=== PATIENT | female | born 1965 | race Caucasian/White ===

== ENCOUNTER 2016-04-15 18:36 | Emergency (ER) | payer OTHER ==
[~2016-04-15] VITALS: Ht 165.1 cm; Wt 57.8 kg
[2016-04-15 18:41] VITALS: BP 116/71; PULSE 80; RESP 16; TEMP 98.4; O2SAT 100
[2016-04-15] MEDS ORDERED: KETOROLAC TROMETHAMINE 60 MG/2 ML (IM) VIAL IM ONE (19:00)
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
--- NOTE | 2016-04-15 19:26 | RADRPT ---
EXAM DATE/TIME: 04/15/2016 19:19 [facility] COMPARISON: CHEST SINGLE AP, July 30, 2014, 8:30. INDICATIONS : Chest pain. MEDICAL HISTORY : None. SURGICAL HISTORY : None. ENCOUNTER: Initial ACUITY: 1 day PAIN SCORE: 2/10 LOCATION: Bilateral chest FINDINGS: PA and lateral views of the chest demonstrate the lungs to be symmetrically aerated without evidence of mass, infiltrate or effusion. The cardiomediastinal contours are unremarkable. Osseous structure s are intact. CONCLUSION: No acute disease. Imer Olivia MD on April 15, 2016 at 19:24 Board Certified Radiologist. This report was verified electronically.
[2016-04-15 19:30] VITALS: BP 125/72; PULSE 84; RESP 20; O2SAT 99
[2016-04-15] MEDS ORDERED: NORC5TAB PO ×2 (19:59→20:47)
[2016-04-15] MEDS ORDERED: ACETAMINOPHEN/HYDROcodone 325 MG/5 MG TAB PO ONE (20:00)
[2016-04-16] MEDS ORDERED: ZOFR4TAB3 SL (19:12)
[2016-04-16] MEDS ORDERED: ROBA750T PO (19:12)
== END 2016-04-15 21:03 | disposition home or self-care (01) ==
LOC: NEPA 18:36
DX: S82.64XA Nondisplaced fracture of lateral malleolus of right fibula, initial encounter for closed fracture (principal); Z72.0 Tobacco use; R07.9 Chest pain, unspecified; V49.9XXA Car occupant (driver) (passenger) injured in unspecified traffic accident, initial encounter
CPT/HCPCS: 71020; 73610; 84703; 96372; 99284; E0113; J1885; L2114

== ENCOUNTER 2016-04-16 13:59 | Emergency (ER) | payer OTHER ==
[~2016-04-16] VITALS: Ht 165.1 cm; Wt 52.0 kg
[~2016-04-16 13:59] MED LIST: NORC5TAB PO
[2016-04-16 14:01] VITALS: BP 113/69; PULSE 102; RESP 14; TEMP 98.2; O2SAT 96
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
[2016-04-16] MEDS ORDERED: SODIUM CHLORIDE 0.9% FLUSH 5 ML FLUSH IVF PRN (16:30)
[2016-04-16] MEDS ORDERED: SODIUM CHLOR 0.9% 1000 ML INJ 1,000 ML IV ONE (16:30)
[2016-04-16] MEDS ORDERED: ONDANSETRON HCL 4 MG/2 ML VIAL IV PUSH ONE (16:30)
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
[2016-04-16 17:16] LABS: AUTOMATED NEUTROPHIL # 8.2 TH/MM3 (1.8-7.7); BASOPHIL % 0.4 % (0.0-2.0); EOSINOPHIL % 0.4 % (0.0-4.0); HEMATOCRIT 37.7 % (35.0-46.0); HEMO FLAGS DIFF FINAL; LYMPH % 18.7 % (9.0-44.0); LYMPHOCYTE # 2.1 TH/MM3 (1.0-4.8); MEAN CELL VOLUME 88.4 FL (80.0-100.0); MEAN CORPUSCULAR HEMOGLOBIN 29.8 PG (27.0-34.0); MEAN CORPUSCULAR HGB CONC 33.7 % (32.0-36.0); MONO % 8.7 % (0.0-8.0); NEUT % 71.8 % (16.0-70.0); PLATELET COUNT 211 TH/MM3 (150-450); RED BLOOD COUNT 4.26 MIL/MM3 (4.00-5.30); RED CELL DISTRIBUTION WIDTH 13.1 % (11.6-17.2); WHITE BLOOD COUNT 11.4 TH/MM3 (4.0-11.0)
[2016-04-16 17:24] LABS: APTT (PATIENT) 24.4 SEC (24.3-30.1); PROTHROMBIN TIME - PATIENT 10.6 SEC (9.8-11.6)
[2016-04-16 17:34] VITALS: O2SAT 100
[2016-04-16 17:44] LABS: ANION GAP 8 MEQ/L (5-15); AST (GOT) 12 U/L (15-37); BICARBONATE 27.8 MEQ/L (21.0-32.0); BLOOD UREA NITROGEN 11 MG/DL (7-18); CHLORIDE 105 MEQ/L (98-107); GLOMERULAR FILTRATION RATE 86 ML/MIN (>89); POTASSIUM 3.8 MEQ/L (3.5-5.1); SODIUM (NA) 141 MEQ/L (136-145)
[2016-04-16 17:49] LABS: ALKALINE PHOSPHATASE 68 U/L (45-117); ALT (GPT) 20 U/L (10-53); TOTAL BILIRUBIN ADULT 1.5 MG/DL (0.2-1.0)
[2016-04-16] MEDS ORDERED: IOHEXOL 350 MG/ML 10 ML VIAL (for RAD DIAG) IV ONE (18:17)
[2016-04-16 18:39] VITALS: BP 103/72; PULSE 74; RESP 20; O2SAT 100
[2016-04-16 18:40] VITALS: BP 103/72; PULSE 74; RESP 20; O2SAT 100
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
[2016-04-16] MEDS ORDERED: ROBA750T PO (19:12)
[2016-04-16] MEDS ORDERED: ZOFR4TAB3 SL (19:12)
== END 2016-04-16 19:43 | disposition home or self-care (01) ==
LOC: NEPC 13:59
DX: M94.0 Chondrocostal junction syndrome [Tietze] (principal); S16.1XXA Strain of muscle, fascia and tendon at neck level, initial encounter; S80.02XA Contusion of left knee, initial encounter; R51 Headache; S82.64XA Nondisplaced fracture of lateral malleolus of right fibula, initial encounter for closed fracture; Z72.0 Tobacco use; V44.5XXD Car driver injured in collision with heavy transport vehicle or bus in traffic accident, subsequent encounter
CPT/HCPCS: 70450; 71020; 71260; 72125; 73564; 80053; 83690; 84484; 85025; 85610; 85730; 96361; 96374; 99284; J2405; J7030; Q9967

== ENCOUNTER 2016-12-10 05:17 | Emergency (ER) | payer BC, OTHER ==
[~2016-12-10] VITALS: Ht 167.6 cm; Wt 53.8 kg
[~2016-12-10 05:17] MED LIST changes: +ROBA750T PO; +ZOFR4TAB3 SL
[2016-12-10 05:24] VITALS: BP 107/68; PULSE 68; RESP 16; TEMP 97.5; O2SAT 100
[2016-12-10] MEDS ORDERED: GAS-CAP3 PO (05:38)
[2016-12-10] MEDS ORDERED: ADVI200C3 (05:38)
[2016-12-10] MEDS ORDERED: TOVI8TAB PO (05:38)
--- NOTE | 2016-12-10 05:52 | PD ---
HPI Chief Complaint: GI Complaint Time Seen by Provider: 05:36 Travel History International Travel<30 days: No Contact w/Intl Traveler<30days: No Traveled to known affect area: No History of Present Illness HPI The patient is a 51-year-old female that for over 2 months has had burning on urination, lower abdominal pain and rectal pain. She is seen her primary care physician and about this and has seen a urologist recently who put her on Toviaz but this is not working anymore. The dysuria is not relieved by Pyridium or Azo. She has slight nausea but no vomiting. She has not had any black or bloody stools but does have alternating constipation and diarrhea. She says she gets frequent urinary tract infections. She denies any fever. 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 PFSH Past Medical History Tubal Ligation: Yes Social History Alcohol Use: Yes (SOCIAL) Tobacco Use: Yes (e-cig) Substance Use: No Allergies-Medications (Allergen,Severity, Reaction): Coded Allergies: Sulfa (Sulfonamide Antibiotics) (Unverified Allergy, Severe, 12/10/16) Reported Meds & Prescriptions Reported Meds & Active Scripts Active Macrobid (Nitrofurantoin Monoh/Nitrofur Macro) 100 Mg Cap 100 Mg PO BID 7 Days Reported Gas-X Ultra Strength (Simethicone) 180 Mg Cap 180 Mg PO TID PRN Advil Migraine (Ibuprofen) 200 Mg Cap Toviaz ER (Fesoterodine Fumarate) 8 Mg Gómez 8 Mg PO DAILY Review of Systems Except as stated in HPI: all other systems reviewed are Neg Physical Exam Narrative GENERAL: The patient is alert, oriented 3 in slight apparent distress with her suprapubic discomfort. Her vital signs are normal. SKIN: Focused skin assessment warm/dry. No skin rash is seen. HEAD: Atraumatic. Normocephalic. EYES: Pupils equal and round. No scleral icterus. No injection or drainage. ENT: No nasal bleeding or discharge. Mucous membranes pink and moist. NECK: Trachea midline. No JVD. CARDIOVASCULAR: Regular rate and rhythm. No murmur appreciated. RESPIRATORY: No accessory muscle use. Clear to auscultation. Breath sounds equal bilaterally. GASTROINTESTINAL: Abdomen soft, with slight discomfort to direct palpation in the midline suprapubic area, nondistended. Hepatic and splenic margins not palpable. MUSCULOSKELETAL: No obvious deformities. No clubbing. No cyanosis. No edema. NEUROLOGICAL: Awake and alert. No obvious cranial nerve deficits. Motor grossly within normal limits. Normal speech. PSYCHIATRIC: Appropriate mood and affect; insight and judgment normal. RECTAL EXAM: No masses or tenderness, the rectum was empty of stool but a small amount of brown stool was obtained which was guaiac negative. No hemorrhoids were noted. The rectum showed no abscesses or masses. Data Data Last Documented VS Orders Orders Complete Blood Count With Diff (12/10/16 06:05) Comprehensive Metabolic Panel (12/10/16 06:05) Lipase (12/10/16 06:05) Urinalysis - C+S If Indicated (12/10/16 06:05) Ct Abd/Pel W Iv Contrast(Rout) (12/10/16 06:05) Iv Access Insert/Monitor (12/10/16 06:05) Ecg Monitoring (12/10/16 06:05) Oximetry (12/10/16 06:05) Ondansetron Inj (Zofran Inj) (12/10/16 06:15) Sodium Chlor 0.9% 1000 Ml Inj (Ns 1000 M (12/10/16 06:05) Sodium Chloride 0.9% Flush (Ns Flush) (12/10/16 06:15) Beta Hcg (Quant/Titer) (12/10/16 06:05) Urine Culture (12/10/16 06:19) Ketorolac Inj (Toradol Inj) (12/10/16 07:00) Iohexol 350 Inj (Omnipaque 350 Inj) (12/10/16 07:08) Labs Laboratory Tests Test 12/10/16 06:19 White Blood Count 14.2 TH/MM3 Red Blood Count 4.30 MIL/MM3 Hemoglobin 12.6 GM/DL Hematocrit 37.5 % Mean Corpuscular Volume 87.2 FL Mean Corpuscular Hemoglobin 29.4 PG Mean Corpuscular Hemoglobin Concent 33.7 % Red Cell Distribution Width 12.2 % Platelet Count 221 TH/MM3 Mean Platelet Volume 9.7 FL Neutrophils (%) (Auto) 78.2 % Lymphocytes (%) (Auto) 13.2 % Monocytes (%) (Auto) 4.6 % Eosinophils (%) (Auto) 0.8 % Basophils (%) (Auto) 3.2 % Neutrophils # (Auto) 11.0 TH/MM3 Lymphocytes # (Auto) 1.9 TH/MM3 Monocytes # (Auto) 0.7 TH/MM3 Eosinophils # (Auto) 0.1 TH/MM3 Basophils # (Auto) 0.5 TH/MM3 CBC Comment DIFF FINAL Differential Comment Urine Color YELLOW Urine Turbidity MOD Urine pH 6.0 Urine Specific [place] 1.029 Urine Protein TRACE mg/dL Urine Glucose (UA) NEG mg/dL Urine Ketones NEG mg/dL Urine Occult Blood LARGE Urine Nitrite NEG Urine Bilirubin NEG Urine Leukocyte Esterase MOD Urine RBC 100-200 /hpf Urine WBC INNUM /hpf Urine Squamous Epithelial Cells 0-5 /hpf Urine Bacteria FEW /hpf Urine Mucus MOD /lpf Microscopic Urinalysis Comment CULTURE INDICATED Blood Urea Nitrogen 26 MG/DL Creatinine 1.10 MG/DL Random Glucose 88 MG/DL Total Protein 7.7 GM/DL Albumin 4.1 GM/DL Calcium Level 8.8 MG/DL Alkaline Phosphatase 59 U/L Aspartate Amino Transf (AST/SGOT) 14 U/L Alanine Aminotransferase (ALT/SGPT) 18 U/L Total Bilirubin 0.5 MG/DL Sodium Level 137 MEQ/L Potassium Level 3.8 MEQ/L Chloride Level 103 MEQ/L Carbon Dioxide Level 26.9 MEQ/L Anion Gap 7 MEQ/L Estimat Glomerular Filtration Rate 53 ML/MIN Lipase 151 U/L Human Chorionic Gonadotropin, Quant 1 MIU/ML MDM Medical Decision Making Medical Screen Exam Complete: Yes Emergency Medical Condition: Yes Medical Record Reviewed: Yes Differential Diagnosis Irritable bowel syndrome, chronic abdominal pain etiology undetermined, interstitial cystitis, cystitis, anemia, electrolyte disorder, renal insufficiency Narrative Course It is now 0700 and the patient is transferred to Dr. Dozier. Procedures EKG Prior to Arrival: No Diagnosis Primary Impression: Cystitis Additional Instructions: Increase liquids, it is important to establish a good urinary flow across her kidneys to fight the infection. Scripts Nitrofurantoin Monohydrate Macrocrystals (Macrobid) 100 Mg Cap 100 MG PO BID for Infection for 7 Days, CAP 0 Refills Prov: Emily Tristan MD 12/10/16 Disposition: 01 DISCHARGE HOME Condition: Stable Sukumar Gonzales MD Dec 10, 2016 05:52
[2016-12-10] MEDS ORDERED: SODIUM CHLOR 0.9% 1000 ML INJ 1,000 ML IV SCH (06:05)
[2016-12-10] MEDS ORDERED: SODIUM CHLORIDE 0.9% FLUSH 10 ML FLUSH IV FLUSH PRN (06:15)
[2016-12-10] MEDS ORDERED: ONDANSETRON HCL 4 MG/2 ML VIAL IVP ONE (06:15)
[2016-12-10] MEDS ORDERED: AUGM875T3 PO (06:21)
[2016-12-10 06:27] LABS: BASOPHIL # 0.5 TH/MM3 (0-0.2); BASOPHIL % 3.2 % (0.0-2.0); EOSINOPHIL # 0.1 TH/MM3 (0-0.4); EOSINOPHIL % 0.8 % (0.0-4.0); HEMATOCRIT 37.5 % (35.0-46.0); HEMO FLAGS DIFF FINAL; LYMPH % 13.2 % (9.0-44.0); LYMPHOCYTE # 1.9 TH/MM3 (1.0-4.8); MEAN CELL VOLUME 87.2 FL (80.0-100.0); MEAN CORPUSCULAR HEMOGLOBIN 29.4 PG (27.0-34.0); MEAN CORPUSCULAR HGB CONC 33.7 % (32.0-36.0); MONO % 4.6 % (0.0-8.0); NEUT % 78.2 % (16.0-70.0); PLATELET COUNT 221 TH/MM3 (150-450); RED CELL DISTRIBUTION WIDTH 12.2 % (11.6-17.2); WHITE BLOOD COUNT 14.2 TH/MM3 (4.0-11.0)
[2016-12-10 06:30] LABS: BLOOD, URINE LARGE (NEG); GLUCOSE,URINE NEG (NEG); KETONE, URINE NEG (NEG); NITRITE,URINE NEG (NEG)
[2016-12-10 06:35] LABS: CHLORIDE 103 MEQ/L (98-107); POTASSIUM 3.8 MEQ/L (3.5-5.1); SODIUM (NA) 137 MEQ/L (136-145)
[2016-12-10 06:38] LABS: MUCUS URINE MOD /lpf (OCC); URINE COLOR YELLOW (YELLW/STRAW)
[2016-12-10 06:39] LABS: ANION GAP 7 MEQ/L (5-15); BACTERIA, URINE FEW /hpf; BICARBONATE 26.9 MEQ/L (21.0-32.0); BLOOD UREA NITROGEN 26 MG/DL (7-18); COMMENT (UR) CULTURE INDICATED; CULTURE IF INDICATED CULTURE INDICATED; RBC, URINE 100-200 /hpf (0-3); SQUAMOUS EPITHELIAL CELL URINE 0-5 /hpf (0-5); WBC, URINE INNUM /hpf (0-5)
[2016-12-10 06:42] LABS: ALT (GPT) 18 U/L (10-53); AST (GOT) 14 U/L (15-37); GLOMERULAR FILTRATION RATE 53 ML/MIN (>89)
[2016-12-10 06:43] LABS: TOTAL BILIRUBIN ADULT 0.5 MG/DL (0.2-1.0)
[2016-12-10 06:44] LABS: ALKALINE PHOSPHATASE 59 U/L (45-117)
[2016-12-10 06:47] LABS: BETA HCG QUANT 1 MIU/ML (0-5)
[2016-12-10 06:58] VITALS: BP 102/65; PULSE 60; RESP 16; O2SAT 100
[2016-12-10 06:59] VITALS: RESP 16; O2SAT 100
[2016-12-10] MEDS ORDERED: KETOROLAC TROMETHAMINE 60 MG/2 ML (IM) VIAL IVP ONE (07:00)
[2016-12-10] MEDS ORDERED: IOHEXOL 350 MG/ML 10 ML VIAL (for RAD DIAG) IVCONTRAST ONE (07:08)
--- NOTE | 2016-12-10 07:22 | RADRPT ---
EXAM DATE/TIME: 12/10/2016 07:04 [facility] COMPARISON: No previous studies available for comparison. INDICATIONS : Lower abdominal pain, rectal pain and burning with urination x 2 months. IV CONTRAST: 85 cc Omnipaque 350 (iohexol) IV ORAL CONTRAST: No oral contrast ingested. RADIATION DOSE: 4.53 CTDIvol (mGy) MEDICAL HISTORY : None SURGICAL HISTORY : Tubal ligation. ENCOUNTER: Initial ACUITY: 2 months PAIN SCALE: 5/10 LOCATION: Bilateral lower quadrant TECHNIQUE: Volumetric scanning of the abdomen and pelvis was performed. Using automated exposure control and ad justment of the mA and/or kV according to patient size, radiation dose was kept as low as reasonably achievable to obtain optimal diagnostic quality images. DICOM format image data is available electro nically for review and comparison. FINDINGS: Lung bases are clear. Osseous structures are intact. No pleural or pericardial effusions. Liver, gall bladder, kidneys, spleen, pancreas, adrenal glands, stomach, urinary bladder, small bowel and large b owel are unremarkable. No evidence of bowel obstruction. The appendix is normal. The ovaries are unre markable. 1.4 cm right ovarian cyst. No free fluid. There is a 1.6 cm nabothian cyst. Retroaortic lef t renal vein. CONCLUSION: No acute disease. iMke Metcalf MD on December 10, 2016 at 7:17 Board Certified Radiologist. This report was verified electronically.
[2016-12-10] MEDS ORDERED: MACR100C2 PO (07:32)
--- NOTE | 2016-12-10 07:33 | PD ---
Physical Exam Date Seen by Provider: Dec 10, 2016 Time Seen by Provider: 07:00 Narrative Patient signed out to me at [address] Gonzales, please see previous notes for further details. Awaiting workup for abdominal pain. Laboratory Tests Test 12/10/16 06:19 White Blood Count 14.2 TH/MM3 (4.0-11.0) Neutrophils (%) (Auto) 78.2 % (16.0-70.0) Basophils (%) (Auto) 3.2 % (0.0-2.0) Neutrophils # (Auto) 11.0 TH/MM3 (1.8-7.7) Basophils # (Auto) 0.5 TH/MM3 (0-0.2) Urine Turbidity MOD (CLEAR) Urine Occult Blood LARGE (NEG) Urine Leukocyte Esterase MOD (NEG) Urine RBC 100-200 /hpf (0-3) Urine WBC INNUM /hpf (0-5) Urine Bacteria FEW /hpf (NONE) Urine Mucus MOD /lpf (OCC) Blood Urea Nitrogen 26 MG/DL (7-18) Creatinine 1.10 MG/DL (0.50-1.00) Aspartate Amino Transf (AST/SGOT) 14 U/L (15-37) Estimat Glomerular Filtration Rate 53 ML/MIN (>89) Last 24 hours Impressions Abdomen/Pelvis CT 12/10/16 0605 Signed Impressions: Service Date/Time: Saturday, December 10, 2016 07:04 - CONCLUSION: No acute disease. Mike Metcalf MD Lab work shows significant UTI. CAT scan did not show any signs of acute intra- abdominal processes. She does have some ovarian cysts which are not likely the cause of her current symptoms. At this point, my plan would be to treat her for UTI and have her follow up with primary care physician. Return for new issues as needed. The plan has been discussed with her and she states understanding. Data Data Last Documented VS Vital Signs Date Time Temp Pulse Resp B/P (MAP) Pulse Ox O2 Delivery O2 Flow Rate FiO2 12/10/16 06:59 16 100 Room Air 12/10/16 06:58 60 12/10/16 05:24 97.5 Orders Orders Complete Blood Count With Diff (12/10/16 06:05) Comprehensive Metabolic Panel (12/10/16 06:05) Lipase (12/10/16 06:05) Urinalysis - C+S If Indicated (12/10/16 06:05) Ct Abd/Pel W Iv Contrast(Rout) (12/10/16 06:05) Iv Access Insert/Monitor (12/10/16 06:05) Ecg Monitoring (12/10/16 06:05) Oximetry (12/10/16 06:05) Ondansetron Inj (Zofran Inj) (12/10/16 06:15) Sodium Chlor 0.9% 1000 Ml Inj (Ns 1000 M (12/10/16 06:05) Sodium Chloride 0.9% Flush (Ns Flush) (12/10/16 06:15) Beta Hcg (Quant/Titer) (12/10/16 06:05) Urine Culture (12/10/16 06:19) Ketorolac Inj (Toradol Inj) (12/10/16 07:00) Iohexol 350 Inj (Omnipaque 350 Inj) (12/10/16 07:08) Labs Laboratory Tests Test 12/10/16 06:19 White Blood Count 14.2 TH/MM3 Red Blood Count 4.30 MIL/MM3 Hemoglobin 12.6 GM/DL Hematocrit 37.5 % Mean Corpuscular Volume 87.2 FL Mean Corpuscular Hemoglobin 29.4 PG Mean Corpuscular Hemoglobin Concent 33.7 % Red Cell Distribution Width 12.2 % Platelet Count 221 TH/MM3 Mean Platelet Volume 9.7 FL Neutrophils (%) (Auto) 78.2 % Lymphocytes (%) (Auto) 13.2 % Monocytes (%) (Auto) 4.6 % Eosinophils (%) (Auto) 0.8 % Basophils (%) (Auto) 3.2 % Neutrophils # (Auto) 11.0 TH/MM3 Lymphocytes # (Auto) 1.9 TH/MM3 Monocytes # (Auto) 0.7 TH/MM3 Eosinophils # (Auto) 0.1 TH/MM3 Basophils # (Auto) 0.5 TH/MM3 CBC Comment DIFF FINAL Differential Comment Urine Color YELLOW Urine Turbidity MOD Urine pH 6.0 Urine Specific [place] 1.029 Urine Protein TRACE mg/dL Urine Glucose (UA) NEG mg/dL Urine Ketones NEG mg/dL Urine Occult Blood LARGE Urine Nitrite NEG Urine Bilirubin NEG Urine Leukocyte Esterase MOD Urine RBC 100-200 /hpf Urine WBC INNUM /hpf Urine Squamous Epithelial Cells 0-5 /hpf Urine Bacteria FEW /hpf Urine Mucus MOD /lpf Microscopic Urinalysis Comment CULTURE INDICATED Blood Urea Nitrogen 26 MG/DL Creatinine 1.10 MG/DL Random Glucose 88 MG/DL Total Protein 7.7 GM/DL Albumin 4.1 GM/DL Calcium Level 8.8 MG/DL Alkaline Phosphatase 59 U/L Aspartate Amino Transf (AST/SGOT) 14 U/L Alanine Aminotransferase (ALT/SGPT) 18 U/L Total Bilirubin 0.5 MG/DL Sodium Level 137 MEQ/L Potassium Level 3.8 MEQ/L Chloride Level 103 MEQ/L Carbon Dioxide Level 26.9 MEQ/L Anion Gap 7 MEQ/L Estimat Glomerular Filtration Rate 53 ML/MIN Lipase 151 U/L Human Chorionic Gonadotropin, Quant 1 MIU/ML MDM Medical Record Reviewed: Yes Supervised Visit with GUCCI: No Diagnosis Primary Impression: UTI (urinary tract infection) Additional Impression: Abdominal pain Med/Other Pt SpecificInfo: Prescription(s) given Scripts Nitrofurantoin Monohydrate Macrocrystals (Macrobid) 100 Mg Cap 100 MG PO BID for Infection for 7 Days, CAP 0 Refills Prov: Emily Tristan MD 12/10/16 Disposition: DISCHARGE HOME Condition: Stable Emily Tristan MD Dec 10, 2016 07:33
[2016-12-10 07:46] VITALS: RESP 16
== END 2016-12-10 07:52 | disposition home or self-care (01) ==
LOC: PHED 05:17
DX: N30.91 Cystitis, unspecified with hematuria (principal); B96.20 Unspecified Escherichia coli [E. coli] as the cause of diseases classified elsewhere; R10.30 Lower abdominal pain, unspecified; K62.89 Other specified diseases of anus and rectum; R11.0 Nausea; Z72.0 Tobacco use; Z87.19 Personal history of other diseases of the digestive system
CPT/HCPCS: 74177; 80053; 81001; 83690; 84702; 85025; 87077; 87086; 87186; 96361; 96374; 96375; 99285; J1885; J2405; J7030; Q9967

== ENCOUNTER 2017-01-01 22:20 | Emergency (ER) | payer OTHER ==
[~2017-01-01] VITALS: Ht 167.6 cm; Wt 51.9 kg
[~2017-01-01 22:20] MED LIST changes: +ADVI200C3; +GAS-CAP3 PO; +MACR100C2 PO; -NORC5TAB PO; -ROBA750T PO; +TOVI8TAB PO; -ZOFR4TAB3 SL
[2017-01-01 22:29] VITALS: BP 114/53; PULSE 67; RESP 14; TEMP 97.3; O2SAT 100
--- NOTE | 2017-01-01 22:51 | PD ---
HPI Chief Complaint: GI Complaint Time Seen by Provider: 22:47 Travel History International Travel<30 days: No Contact w/Intl Traveler<30days: No Traveled to known affect area: No History of Present Illness HPI 51-year-old female presents to the emergency department by private transportation the care of her mother for evaluation of abdominal pain. Patient reports one hour after eating dinner she started noticing abdominal pain. Patient states she's had similar type cramping pain in the past but typically short-lived and resolved with a bowel movement. Patient states her pain has persisted and is 7-9/10 in intensity. Pain is primarily left upper quadrant but is also bilateral lower quadrant. Patient had 2 episodes of vomiting. No coffee-ground emesis no hematemesis. Patient denies any blood in her stool. Patient denies dysuria.. No report of chest pain or shortness of breath. No report of fever or chills. Patient states that she did break out into a sweat. Patient reports that because of persistent pain she decided come to the emergency room for evaluation. Patient is under the care of primary provider or recurrent interstitial cystitis as well as direct support worker for red blood per rectum and is scheduled to undergo upper endoscopy and colonoscopy on Saturday. Mother who ate the same meal has had no symptoms. No report of dietary indiscretion well water ingestion or foreign travel. PFSH Past Medical History Narrative Medical Interstitial cystitis, tubal ligation, partial hysterectomy, occasional alcohol use; nursing notes reviewed Diminished Hearing: No Tetanus Vaccination: Unknown Influenza Vaccination: No ?: Not Tubal Ligation: Yes Past Surgical History Hysterectomy: Yes (partial) Social History Alcohol Use: Yes (SOCIAL) Tobacco Use: No Substance Use: No Allergies-Medications (Allergen,Severity, Reaction): Coded Allergies: Sulfa (Sulfonamide Antibiotics) (Unverified Allergy, Severe, 01/01/17) Reported Meds & Prescriptions Reported Meds & Active Scripts Active Reported Advil Migraine (Ibuprofen) 200 Mg Cap Toviaz ER (Fesoterodine Fumarate) 8 Mg Gómez 8 Mg PO DAILY Review of Systems Except as stated in HPI: all other systems reviewed are Neg General / Constitutional: Positive: Chills, No: Fever HENT: No: Congestion Cardiovascular: No: Chest Pain or Discomfort Respiratory: No: Shortness of Breath Gastrointestinal: Positive: Nausea, Vomiting (x2), Abdominal Pain, No: Diarrhea , Hematemesis, Hematochezia, Constipation, Changes in Bowel Habits Genitourinary: No: Urgency, Frequency, Dysuria, Hematuria, Flank Pain Musculoskeletal: No: Myalgias, Arthralgias Skin: No Rash Neurologic: No: Weakness Psychiatric: No: Anxiety Hematologic/Lymphatic: No: Easy Bruising Physical Exam Narrative GENERAL: Well-developed well-nourished female in no acute distress no respiratory distress SKIN: Warm and dry. HEAD: Normocephalic. EYES: No scleral icterus. No injection or drainage. NECK: Supple, trachea midline. No JVD or lymphadenopathy. CARDIOVASCULAR: Regular rate and rhythm without murmurs, gallops, or rubs. RESPIRATORY: Breath sounds equal bilaterally. No accessory muscle use. GASTROINTESTINAL: Abdomen soft, reproducible left upper quadrant tenderness to palpation, no guarding no rebound, no palpable pulsatile mass, nondistended. MUSCULOSKELETAL: No cyanosis, or edema. BACK: Nontender without obvious deformity. No CVA tenderness. Data Data Last Documented VS Vital Signs Date Time Temp Pulse Resp B/P (MAP) Pulse Ox O2 Delivery O2 Flow Rate FiO2 01/02/17 00:41 72 16 98/62 (74) 98 Room Air 01/01/17 22:29 97.3 Orders Orders Complete Blood Count With Diff (01/01/17 22:46) Comprehensive Metabolic Panel (01/01/17 22:46) Lipase (01/01/17 22:46) Lactic Acid (01/01/17 22:46) Urinalysis - C+S If Indicated (01/01/17 22:46) Iv Access Insert/Monitor (01/01/17 22:46) Ecg Monitoring (01/01/17 22:46) Oximetry (01/01/17 22:46) Ondansetron Inj (Zofran Inj) (01/01/17 23:00) Sodium Chloride 0.9% Flush (Ns Flush) (01/01/17 23:00) Electrocardiogram (01/01/17 22:46) Chest, Single Ap (01/01/17 22:46) Troponin I (01/01/17 22:46) Ed Urine Pregnancytest Poc (01/01/17 22:46) Urine Culture (01/01/17 23:00) Ct Abd/Pel W Iv Contrast(Rout) (01/02/17 00:02) Iohexol 350 Inj (Omnipaque 350 Inj) (01/02/17 00:03) Dicyclomine Inj (Bentyl Inj) (01/02/17 01:00) Ketorolac Inj (Toradol Inj) (01/02/17 01:00) Labs Laboratory Tests Test 01/01/17 23:00 01/01/17 23:10 Urine Color YELLOW Urine Turbidity MOD Urine pH 7.0 Urine Specific [place] 1.028 Urine Protein NEG mg/dL Urine Glucose (UA) NEG mg/dL Urine Ketones NEG mg/dL Urine Occult Blood NEG Urine Nitrite NEG Urine Bilirubin NEG Urine Leukocyte Esterase SMALL Urine WBC 9-14 /hpf Urine Squamous Epithelial Cells > 8 /hpf Urine Amorphous Sediment MOD Urine Bacteria OCC /hpf Urine Mucus MANY /lpf Microscopic Urinalysis Comment CULTURE INDICATED White Blood Count 10.9 TH/MM3 Red Blood Count 4.11 MIL/MM3 Hemoglobin 11.8 GM/DL Hematocrit 35.6 % Mean Corpuscular Volume 86.8 FL Mean Corpuscular Hemoglobin 28.6 PG Mean Corpuscular Hemoglobin Concent 33.0 % Red Cell Distribution Width 12.0 % Platelet Count 200 TH/MM3 Mean Platelet Volume 9.8 FL Neutrophils (%) (Auto) 81.6 % Lymphocytes (%) (Auto) 13.0 % Monocytes (%) (Auto) 4.5 % Eosinophils (%) (Auto) 0.5 % Basophils (%) (Auto) 0.4 % Neutrophils # (Auto) 8.9 TH/MM3 Lymphocytes # (Auto) 1.4 TH/MM3 Monocytes # (Auto) 0.5 TH/MM3 Eosinophils # (Auto) 0.1 TH/MM3 Basophils # (Auto) 0.0 TH/MM3 CBC Comment DIFF FINAL Differential Comment Blood Urea Nitrogen 17 MG/DL Creatinine 0.86 MG/DL Random Glucose 130 MG/DL Total Protein 7.4 GM/DL Albumin 4.0 GM/DL Calcium Level 9.0 MG/DL Alkaline Phosphatase 55 U/L Aspartate Amino Transf (AST/SGOT) 11 U/L Alanine Aminotransferase (ALT/SGPT) 17 U/L Total Bilirubin 0.4 MG/DL Sodium Level 140 MEQ/L Potassium Level 4.0 MEQ/L Chloride Level 103 MEQ/L Carbon Dioxide Level 28.8 MEQ/L Anion Gap 8 MEQ/L Estimat Glomerular Filtration Rate 70 ML/MIN Lactic Acid Level 1.5 mmol/L Troponin I LESS THAN 0.02 NG/ML Lipase 155 U/L MDM Medical Decision Making Medical Screen Exam Complete: Yes Emergency Medical Condition: Yes Medical Record Reviewed: Yes Interpretation(s) Last Impressions Abdomen/Pelvis CT 01/02/17 0002 Signed Impressions: Service Date/Time: Sunday, January 01, 2017 23:59 - CONCLUSION: 1. Mild gastric distention. Otherwise, no acute findings in abdomen and pelvic CT. No significant change from December 10. Kenrick Sanchez MD CBC & BMP Diagram 01/01/17 23:10 Total Protein 7.4, Albumin 4.0, Calcium Level 9.0, Alkaline Phosphatase 55, Aspartate Amino Transf (AST/SGOT) 11 L, Alanine Aminotransferase (ALT/SGPT) 17, Total Bilirubin 0.4 EKG: Sinus rhythm rate 63 by ventricular conduction delay no acute ST elevation or injury pattern noted Vital Signs Date Time Temp Pulse Resp B/P (MAP) Pulse Ox O2 Delivery O2 Flow Rate FiO2 01/02/17 00:41 72 16 98/62 (74) 98 Room Air 01/01/17 23:10 97 01/01/17 22:43 18 01/01/17 22:29 97.3 67 14 114/53 (73) 100 Differential Diagnosis Abdominal pain, intestinal colic, diverticulitis, colitis, bowel obstruction, irritable bowel syndrome, renal colic, atypical chest pain, ACS; also to consider abdominal aortic aneurysm, aortic dissection Narrative Course IV access obtained specimens collected and sent for resulting Diagnosis Primary Impression: Abdominal pain Additional Impression: Intestinal colic Referrals: Primary Care Physician call for appointment Patient Instructions: General Instructions Additional Instructions: Recommend clear liquid diet for next 12-24 hours advance as tolerated bland/ German diet and regular diet Takes Zofran as prescribed as needed for nausea and/or vomiting Take Levsin as prescribed as needed for intestinal spasm Increase fluid hydration May take acetaminophen/Tylenol as needed for minor pain per package directions Return to the emergency department for any concerns or change in condition Med/Other Pt SpecificInfo: Prescription(s) given Scripts Ondansetron Odt (Zofran Odt) 4 Mg Tab 4 MG SL Q6HR Y for Nausea/Vomiting, #10 TAB 0 Refills Prov: Miladis Sheehan MD 01/02/17 Nitrofurantoin Monohydrate Macrocrystals (Macrobid) 100 Mg Cap 100 MG PO BID for Infection, #6 CAP 0 Refills Prov: Miladis Sheehan MD 01/02/17 Hyoscyamine (Levsin) 0.125 Mg Tab 0.125 MG PO Q6H for Gastrointestinal disorders, #7 TAB 0 Refills Prov: Miladis Sheehan MD 01/02/17 Disposition: 01 DISCHARGE HOME Condition: Stable Miladis Sheehan MD Jan 01, 2017 22:51
[2017-01-01] MEDS ORDERED: SODIUM CHLORIDE 0.9% FLUSH 10 ML FLUSH IV FLUSH PRN (23:00)
[2017-01-01] MEDS ORDERED: ONDANSETRON HCL 4 MG/2 ML VIAL IVP ONE (23:00)
[2017-01-01 23:10] VITALS: O2SAT 97
[2017-01-01 23:24] LABS: BLOOD, URINE NEG (NEG); GLUCOSE,URINE NEG (NEG); KETONE, URINE NEG (NEG); NITRITE,URINE NEG (NEG)
[2017-01-01 23:28] LABS: AUTOMATED NEUTROPHIL # 8.9 TH/MM3 (1.8-7.7); BASOPHIL % 0.4 % (0.0-2.0); CHLORIDE 103 MEQ/L (98-107); EOSINOPHIL # 0.1 TH/MM3 (0-0.4); EOSINOPHIL % 0.5 % (0.0-4.0); HEMATOCRIT 35.6 % (35.0-46.0); HEMO FLAGS DIFF FINAL; LYMPHOCYTE # 1.4 TH/MM3 (1.0-4.8); MEAN CELL VOLUME 86.8 FL (80.0-100.0); MEAN CORPUSCULAR HEMOGLOBIN 28.6 PG (27.0-34.0); MONO % 4.5 % (0.0-8.0); NEUT % 81.6 % (16.0-70.0); PLATELET COUNT 200 TH/MM3 (150-450); RED BLOOD COUNT 4.11 MIL/MM3 (4.00-5.30); SODIUM (NA) 140 MEQ/L (136-145); WHITE BLOOD COUNT 10.9 TH/MM3 (4.0-11.0)
[2017-01-01 23:31] LABS: MUCUS URINE MANY /lpf (OCC); URINE COLOR YELLOW (YELLW/STRAW)
[2017-01-01 23:32] LABS: SQUAMOUS EPITHELIAL CELL URINE > 8 /hpf (0-5)
[2017-01-01 23:32] LABS: ANION GAP 8 MEQ/L (5-15); BICARBONATE 28.8 MEQ/L (21.0-32.0); BLOOD UREA NITROGEN 17 MG/DL (7-18)
[2017-01-01 23:33] LABS: BACTERIA, URINE OCC /hpf; COMMENT (UR) CULTURE INDICATED; CULTURE IF INDICATED CULTURE INDICATED
[2017-01-01 23:35] LABS: ALT (GPT) 17 U/L (10-53); AST (GOT) 11 U/L (15-37); GLOMERULAR FILTRATION RATE 70 ML/MIN (>89)
[2017-01-01 23:36] LABS: TOTAL BILIRUBIN ADULT 0.4 MG/DL (0.2-1.0)
[2017-01-01 23:37] LABS: ALKALINE PHOSPHATASE 55 U/L (45-117)
[2017-01-02] MEDS ORDERED: IOHEXOL 350 MG/ML 10 ML VIAL (for RAD DIAG) IVCONTRAST ONE (00:03)
--- NOTE | 2017-01-02 00:28 | RADRPT ---
EXAM DATE/TIME: 01/01/2017 23:59 [facility] COMPARISON: CT ABDOMEN & PELVIS W CONTRAST, December 10, 2016, 7:04. INDICATIONS : Left upper quadrant pain. IV CONTRAST: 100 cc Omnipaque 350 (iohexol) IV ORAL CONTRAST: No oral contrast ingested. RADIATION DOSE: 4.54 CTDIvol (mGy) MEDICAL HISTORY : None SURGICAL HISTORY : Tubal ligation. Hysterectomy. ENCOUNTER: Initial ACUITY: 1 day PAIN SCALE: 8/10 LOCATION: Left upper quadrant TECHNIQUE: Volumetric scanning of the abdomen and pelvis was performed. Using automated exposure control and ad justment of the mA and/or kV according to patient size, radiation dose was kept as low as reasonably achievable to obtain optimal diagnostic quality images. DICOM format image data is available electro nically for review and comparison. FINDINGS: Lung bases are clear. The stomach is mildly distended with fluid. No acute findings in the liver, spl een, adrenals, kidneys or pancreas. No free fluid. No bowel obstruction. No adenopathy. No gallstones identified. CONCLUSION: 1. Mild gastric distention. Otherwise, no acute findings in abdomen and pelvic CT. No significant piper nge from December 10. Kenrick Sanchez MD on January 02, 2017 at 0:21 Board Certified Radiologist. This report was verified electronically.
[2017-01-02 00:41] VITALS: BP 98/62; PULSE 72; RESP 16; O2SAT 98
--- NOTE | 2017-01-02 00:50 | RADRPT ---
EXAM DATE/TIME: 01/01/2017 23:55 [facility] COMPARISON: No previous studies available for comparison. INDICATIONS : Chest and abdominal pain. MEDICAL HISTORY : None. SURGICAL HISTORY : Tubal ligation. ENCOUNTER: Initial ACUITY: 1 day PAIN SCORE: 6/10 LOCATION: Bilateral lower chest FINDINGS: A single view of the chest demonstrates the lungs to be symmetrically aerated without evidence of mas s, infiltrate or effusion. The cardiomediastinal contours are unremarkable. Osseous structures are intact. CONCLUSION: No acute disease. No significant change has occurred. Kenrick Sanchez MD on January 02, 2017 at 0:49 Board Certified Radiologist. This report was verified electronically.
[2017-01-02] MEDS ORDERED: LEVS0.123 PO (00:58)
[2017-01-02] MEDS ORDERED: MACR100C2 PO (00:58)
[2017-01-02] MEDS ORDERED: ZOFR4TAB3 SL (00:58)
[2017-01-02] MEDS ORDERED: SODIUM CHLORID 0.9% 500 ML INJ 500 ML IV ONE (01:00)
[2017-01-02] MEDS ORDERED: DICYCLOMINE HCL 20 MG/2 ML VIAL IM ONE (01:00)
[2017-01-02] MEDS ORDERED: KETOROLAC TROMETHAMINE 30 MG/ML (IVP) VIAL IV PUSH ONE (01:00)
[2017-01-02] MEDS ORDERED: HYOSCYAMINE 0.125 MG TAB PO ONE (01:15)
[2017-01-02 01:38] VITALS: BP 112/60; PULSE 70; RESP 16; O2SAT 98
--- NOTE | 2017-01-02 14:52 | EKG ---
Date Performed: 01/01/2017 Time Performed: 23:18:05 PTAGE: 51 years EKG: Sinus rhythm WITH SHORT TN INTERVAL POSSIBLE RIGHT VENTRICULAR CONDUCTION DELAY BORDERLINE ECG PREVIOUS TRACING : 07/30/2014 07.11 Compared to prior tracing no significant change DOCTOR: Ronn Woodard Interpretating Date/Time 01/02/2017 14:51:23
== END 2017-01-02 02:10 | disposition home or self-care (01) ==
LOC: PHED 22:20
DX: R10.84 Generalized abdominal pain (principal); R11.10 Vomiting, unspecified; R94.31 Abnormal electrocardiogram [ECG] [EKG]; Z87.448 Personal history of other diseases of urinary system; Z87.19 Personal history of other diseases of the digestive system
CPT/HCPCS: 71010; 74177; 80053; 81001; 83605; 83690; 84484; 84703; 85025; 87086; 93005; 96361; 96374; 96375; 99285; J1885; J2405; J7040; Q9967